=== PATIENT | female | born 1995 | race Caucasian/White ===

== ENCOUNTER → 2016-06-03 | Outpatient (CLI) | payer OTHER ==
[2015-07-05 16:22] VITALS: BP 116/59
[~2016-06-03] MED LIST: CIPRO500 M1 PO; FLOMAX 0.40.4 MG/CAP PO; KETOROLAC10 MG PO; NORCO 325 MG-51 TA1 PO; ZOFRAN4 M1 PO
== END ==
LOC: LAB 10:08
DX: M54.5 Low back pain (principal)

== ENCOUNTER → 2018-12-24 | Outpatient (CLI) | payer OTHER ==
[2015-07-05 16:22] VITALS: BP 116/59
[2018-12-24 15:01] LABS: CLUE CELLS NOT OBSERVED (Not Observd)
== END ==
LOC: LAB 14:27
PROVIDERS: Nurse Practitioner
DX: J02.9 Acute pharyngitis, unspecified (principal); N89.8 Other specified noninflammatory disorders of vagina; M54.5 Low back pain; R35.0 Frequency of micturition
CPT/HCPCS: Q0111